=== PATIENT | male | born 1960 | race Caucasian/White ===

== ENCOUNTER 2022-11-30 09:25 | Emergency (ER) | payer BC ==
[~2022-11-30] VITALS: Ht 190.5 cm; Wt 95.2 kg
[~2022-11-30 09:25] MED LIST: ASPI81CH PO; ATOR80 PO; CLOP75 PO; LISI5 PO; METO25ER PO; NITR.4SL SL; OXYACE5T PO; Zofran Odt4 MG SL
[2022-11-30 09:49] LABS: BASOPHILS ABSOLUTE AUTO 0.04 K/mm3 (0.00-0.23); BASOPHILS PERCENT AUTO 1 % (0-2); EOSINOPHILS ABSOLUTE AUTO 0.06 K/mm3 (0.00-0.68); EOSINOPHILS PERCENT AUTO 1 % (0-6); Hematocrit 40.8 % (37.0-53.0); Hemoglobin 14.3 g/dL (13.5-17.5); IMMATURE GRAN ABSOLUTE AUTO 0.02 K/mm3 (0.00-0.10); IMMATURE GRAN PERCENT AUTO 0 % (0-1); LYMPHOCYTES ABSOLUTE AUTO 1.29 K/mm3 (0.84-5.20); LYMPHOCYTES PERCENT AUTO 25 % (21-46); MONOCYTES ABSOLUTE AUTO 0.36 K/mm3 (0.16-1.47); MONOCYTES PERCENT AUTO 7 % (4-13); Mean Corpuscular HGB 32.7 pg (26.0-34.0); Mean Corpuscular Volume 93 fL (80-100); Mean Platelet Volume 10.6 fL (9.1-12.4); NEUTROPHILS ABSOLUTE AUTO 3.36 K/mm3 (1.96-9.15); NEUTROPHILS PERCENT AUTO 66 % (41-73); Platelet Count 168 K/mm3 (150-400); RDW Coefficient Variation 11.4 % (11.7-14.2); RDW Standard Deviation 38.4 fL (35.1-46.3); Red Blood Cell Count 4.37 M/mm3 (4.30-5.90); White Blood Cell Count 5.13 K/mm3 (4.00-11.30)
[2022-11-30 10:07] LABS: Bun/Creatinine Ratio 10.8 (12.0-20.0); Calcium, Blood 8.1 mg/dL (8.5-10.1); Creatinine, Blood 1.11 mg/dL (0.60-1.20); Magnesium, Blood 1.9 mg/dL (1.6-2.4); Potassium, Blood 4.2 mmol/L (3.5-5.5)
[2022-11-30] MEDS ORDERED: ONDA4ODT MM (12:09)
[2022-11-30 12:56] VITALS: BP 140/89
== END 2022-11-30 13:02 | disposition home or self-care (01) ==
LOC: ER 09:25
PROVIDERS: Student in an Organized Health Care Education/Training Program
DX: R11.0 Nausea (principal); R42 Dizziness and giddiness; I25.10 Atherosclerotic heart disease of native coronary artery without angina pectoris; Z88.0 Allergy status to penicillin; Z88.1 Allergy status to other antibiotic agents; Z79.82 Long term (current) use of aspirin; Z79.02 Long term (current) use of antithrombotics/antiplatelets
CPT/HCPCS: 80048; 83735; 84484; 85025; 93005; 93010; 96360; 99284-25; J7030